=== PATIENT | male | born 1965 | race Caucasian/White ===

== ENCOUNTER 2021-01-22 15:37 | Emergency (ER) | payer OTHER ==
[~2021-01-22 15:37] MED LIST: NORCO 5-325 TA1 EACH PO; OMEPRAZOLE40 MG PO; ZOFRAN4 MG PO
[2021-01-22] MEDS ORDERED: PREDNISONE 20MG20 MG PO (16:57)
== END 2021-01-22 17:05 | disposition home or self-care (01) ==
LOC: FER 15:37
DX: S39.012A Strain of muscle, fascia and tendon of lower back, initial encounter (principal); I10 Essential (primary) hypertension; E78.5 Hyperlipidemia, unspecified; X50.1XXA Overexertion from prolonged static or awkward postures, initial encounter; Y92.89 Other specified places as the place of occurrence of the external cause; Y99.0 Civilian activity done for income or pay
CPT/HCPCS: J1100